=== PATIENT | male | born 1995 | race American Indian/Alaskan Native ===

== ENCOUNTER 2018-05-09 12:31 | Emergency (ER) | payer OTHER ==
[2018-05-09 12:46] VITALS: BP 135/60
--- NOTE | 2018-05-09 12:46 | Emergency Department Report ---
Blank Doc - Documentation Documentation: 23-year-old male that presents with unable to hear to right ear. Denies any t rauma. Denies any pain. Denies PMH. Right ear has cerumen impaction Sent to [facility] for further evaluation and treatment
[2018-05-09] MEDS ORDERED: COLACE FEEDTUBE ONE (13:21)
--- NOTE | 2018-05-09 13:23 | Emergency Department Report ---
Minor Respiratory - HPI Chief Complaint: Earache Stated Complaint: RT EAR CLOGGED Time Seen by Provider: 05/09/18 12:44 Duration: 1 Day Pain Location: Ear Severity: mild Minor Respiratory: Yes Able to Tolerate Fluids, Yes Ear Pain, No Rhinorrhea, No Sore Throat, No Cough, No Sick Contacts, No Hemoptysis, No Chest Pain, No Shortness of Breath, No Fever Other History: Patient is a 23-year-old -Citizen Of [place] male who comes to the ER today with right ear pain. He has no fever or other respiratory symptoms ED Review of Systems ROS: Stated complaint: RT EAR CLOGGED Other details as noted in HPI Comment: All other systems reviewed and negative Constitutional: denies: fever Eyes: denies: eye discharge ENT: ear pain Respiratory: denies: cough Cardiovascular: denies: palpitations Endocrine: denies: flushing Gastrointestinal: denies: vomiting Genitourinary: denies: urgency ED Past Medical Hx - Social History Smoking Status: Never Smoker Substance Use Type: None Minor Respiratory Exam - Exam General: Vital signs noted. No distress. Alert and acting appropriately. HEENT: Yes Moist Mucous Membranes, No Pharyngeal Erythema, No Pharyngeal Exudates, No Rhinorrhea, No Conjuctival Injection, No Frontal Tenderness, No Maxillary Tenderness Ear: Right TM Erythema, Right EAC Pain, Right EAC Discharge Neck: Yes Supple, No Adenopathy Lungs: Yes Wheezes, No Good Air Exchange, No Ronchi, No Stridor, No Cough, No Labored Respirations, No Retractions, No Use of Accessory Muscles, No Other Abnormal Lung Sounds Heart: Yes Murmur, No Regular Abdomen: Yes Normal Bowel Sounds, No Tenderness, No Peritoneal Signs Skin: No Rash, No Edema Neurologic: Alert and oriented, no deficits. Musculoskeletal: Unremarkable. ED Course Vital Signs 05/09/18 12:45 Temperature 97.9 F Pulse Rate 58 L Respiratory 18 Rate Blood Pressure 135/60 O2 Sat by Pulse 97 Oximetry - Reevaluation(s) Reevaluation #1: 05/09/18 Patient has a wax impaction in his right ear on exam. I did use Colace and flushed with an Angiocath and warm water. I was able to dislodge a large ball of wax. ED Medical Decision Making - Medical Decision Making ear wax impaction pt educated on ear care - Differential Diagnosis simple resp Critical care attestation.: If time is entered above; I have spent that time in minutes in the direct care of this critically ill patient, excluding procedure time. ED Disposition Clinical Impression: Cerumen impaction Disposition: TO HOME OR SELFCARE Is pt being admited?: No Does the pt Need Aspirin: No Condition: Stable Instructions: Cerumen Impaction (ED) Additional Instructions: NOTHING IN EARS NO QTIPS NO FINGER YOU SHOULD CLEAN YOUR EAR TWICE PER WEEK WITH DEBROX/CERUMENEX WHICH IS OVER THE COUNTER MOTRIN OR TYLENOL FOR PAIN Referrals: STEPHANIE JONES MD [Staff Physician] - 3-5 Days Time of Disposition: 13:22
[2018-05-09] MEDS ORDERED: NACL 0.9% 500 ML IR ONE (13:48)
[2018-05-09] MEDS ORDERED: COLACE ONE (14:00)
[2018-05-09] MEDS ORDERED: DECADRON IM ONE ×2 (14:20→15:00)
[2018-05-09] MEDS ORDERED: COLACE PO ONE (14:24)
[2018-05-09] MEDS ORDERED: NACL 0.9% IR ONE (14:24)
== END 2018-05-09 15:29 | disposition home or self-care (01) ==
LOC: ED 12:31
DX: H61.21 Impacted cerumen, right ear (principal)
CPT/HCPCS: 96372; 99283; J1100